=== PATIENT | female | born 1945 | race Caucasian/White ===

== ENCOUNTER 2020-02-19 20:01 | Observation (INO) ==
[2020-02-19 23:49] LABS: Adenovirus Not Detected (Not Detect); Bordetella Pertussis Not Detected (Not Detect); Chlamydophila pneumoniae Not Detected (Not Detect); Coronavirus 229E Not Detected (Not Detect); Coronavirus HKU1 Not Detected (Not Detect); Coronavirus NL63 Not Detected (Not Detect); Coronavirus OC43 Not Detected (Not Detect); Human Metapneumovirus Not Detected (Not Detect); Human Rhinovirus/Enterovirus Not Detected (Not Detect); Influenza A Subtype 2009 H1 Not Detected (Not Detect); Influenza B Not Detected (Not Detect); Mycoplasma pneumoniae Not Detected (Not Detect); Parainfluenza Virus 1 Not Detected (Not Detect); Parainfluenza Virus 2 Not Detected (Not Detect); Parainfluenza Virus 3 Not Detected (Not Detect); Parainfluenza Virus 4 Not Detected (Not Detect); Respiratory Syncytial Virus Not Detected (Not Detect)
[2020-02-20] MEDS ORDERED: Ondansetron ODT 4 MG TAB.RAPDIS SL PRN (01:08)
[2020-02-20] MEDS ORDERED: Naloxone 0.4 MG/ML INJ IVP PRN (01:08)
[2020-02-20] MEDS ORDERED: *HR* Dextrose 50 % in Water (Vial) 50 ML VIAL IVP PRN (01:12)
[2020-02-20] MEDS ORDERED: Dextrose Gel 15 GM/37.5 ML TUBE PO PRN ×2 (01:12)
[2020-02-20] MEDS ORDERED: D5% in Water 1,000 ML IVC PRN (01:12)
[2020-02-20 01:37] LABS: Eosinophils % 1.6 %; Hematocrit 36.8 % (35.3-44.9); Hemoglobin 11.2 g/dL (11.5-15.4); Immature Granulocytes % 0.6 % (0-4); Lymphocytes % 18.2 %; Mean Corpuscular HGB Conc 30.4 g/dL (31.6-35.5); Mean Corpuscular Hemoglobin 32.4 pg (28.0-33.3); Mean Corpuscular Volume 106.4 fL (83.0-100.0); Mean Platelet Volume 10.9 fL (9.4-12.4); Monocytes % 11.3 %; Platelet Count 204 K/mcL (140-400); Red Blood Count 3.46 M/mcL (3.82-4.97); Red Cell Distribution Width 13.4 % (11.5-14.5); Segmented Neutrophils % 67.9 %
[2020-02-20 01:38] LABS: Basophils % 0.4 %; Eosinophils # 0.1 K/mcL (0.0-0.6); Lymphocytes # 1.6 K/mcL (0.6-4.6); Neutrophils # 6.1 K/mcL (1.6-8.9)
[2020-02-20 01:56] LABS: Calcium 12.3 mg/dL (8.6-10.3); Potassium 3.9 mEq/L (3.5-5.1)
[2020-02-20] MEDS ORDERED: *HR* Heparin 5,000 UNIT/ML VIAL IVP ONE (02:02)
[2020-02-20] MEDS ORDERED: *HR* Heparin 5,000 UNIT/ML VIAL IVP PRN ×2 (02:02)
[2020-02-20] MEDS ORDERED: Perflutren Lipid Microsphere 1.3 ML in 0.9 % Sodium Chloride 8.7 ML IVP PRN (02:04)
[2020-02-20] MEDS ORDERED: Ipratropium/Albuterol Neb 3 ML IH PRN (02:04)
[2020-02-20] MEDS ORDERED: Heparin 25,000UNIT/250ML 1/2NS 25,000 UNIT/250 ML IV.SOLN IVC SCH (02:15)
[2020-02-20] MEDS ORDERED: 0.9 % Sodium Chloride 1,000 ML IVC SCH (02:30)
[2020-02-20 05:02] LABS: Hematocrit 35.7 % (35.3-44.9); Hemoglobin 11.1 g/dL (11.5-15.4); Mean Corpuscular HGB Conc 31.1 g/dL (31.6-35.5); Mean Corpuscular Hemoglobin 33.3 pg (28.0-33.3); Mean Corpuscular Volume 107.2 fL (83.0-100.0); Platelet Count 203 K/mcL (140-400); Red Blood Count 3.33 M/mcL (3.82-4.97); Red Cell Distribution Width 13.6 % (11.5-14.5); White Blood Count 8.3 K/mcL (4.3-11.1)
[2020-02-20 05:06] LABS: Heparin anti-factor XA UFH 0.65 IU/mL (0.30-0.70); INR 1.1; Prothrombin Time 12.2 Seconds (9.4-12.1)
[2020-02-20 05:24] LABS: Phosphorous 5.1 mg/dL (2.7-4.5); Uric Acid 8.7 mg/dL (2.3-7.6)
[2020-02-20 05:37] LABS: Carcinoembryonic Antigen 0.7 ng/mL (Less than 5.0); Thyroid Stimulating Hormone 2.001 mcIU/mL (0.340-5.600)
[2020-02-20] MEDS ORDERED: Insulin LISPRO 300 UNITS/3 ML VIAL SQ SCH (06:00)
[2020-02-20 06:56] VITALS: BP 126/67
[2020-02-20] MEDS ORDERED: Protamine Sulfate 50 MG/5 ML VIAL IVP ONE (08:26)
[2020-02-20] MEDS ORDERED: Furosemide 40 MG TABLET PO SCH (09:00)
[2020-02-20] MEDS ORDERED: Gabapentin 300 MG CAPSULE PO SCH (09:00)
[2020-02-20 11:02] LABS: Estimated Average Glucose 177 mg/dl
== END 2020-02-20 09:20 | disposition other institution (70) ==
LOC: CDU → SUATTDRO 21:56 → 3BNU 02-20 00:21
PROVIDERS: ADMIT Internal Medicine; ATTEND Pharmacist